=== PATIENT | female | born 1990 | race Caucasian/White ===

== ENCOUNTER 2021-01-17 10:26 | Emergency (ER) | payer BC ==
[~2021-01-17] VITALS: Ht 170.2 cm; Wt 134.7 kg
[2021-01-17 10:26] VITALS: BP_SYST 141
[2021-01-17] MEDS ORDERED: ACETAMINOPHEN 500 MG TABLET PO ONE (11:30)
[2021-01-17] MEDS ORDERED: IBUPROFEN 600 MG TABLET PO ONE (11:30)
[2021-01-17 13:00] VITALS: BP_SYST 141
[2021-01-17] MEDS ORDERED: LEVE500T9 PO (13:00)
== END 2021-01-17 13:05 | disposition left against medical advice (07) ==
LOC: SED 10:26
DX: M01.X71 Direct infection of right ankle and foot in infectious and parasitic diseases classified elsewhere (principal)
CPT/HCPCS: 99283